=== PATIENT | female | born 1980 | race Caucasian/White ===

== ENCOUNTER 2019-01-10 11:27 | Inpatient (IN) | payer OTHER ==
[2019-01-10 13:36] LABS: ADD MAN DIFF? NO
[2019-01-10 13:41] LABS: WHITE BLOOD COUNT 7.4 10^3/ul (4.8-10.8)
[2019-01-10 13:41] LABS: BASOPHILS % 0.5 % (0.0-2.0); EOSINOPHILS # 0.1 10^3/ul (0.0-0.5); EOSINOPHILS % 1.1 % (0.0-7.0); HEMATOCRIT 40.5 % (37.0-47.0); HEMOGLOBIN 13.5 g/dl (12.0-16.0); LYMPHOCYTES # 2.3 10^3/ul (0.8-2.9); LYMPHOCYTES % 31.2 % (15.0-51.0); MEAN CORPUSCULAR HEMOGLOBIN 29.3 pg (29.0-33.0); MEAN CORPUSCULAR HGB CONC 33.3 g/dl (32.0-37.0); MEAN CORPUSCULAR VOLUME 87.9 fl (82.0-101.0); MEAN PLATELET VOLUME 9.7 fl (7.4-10.4); MONOCYTE # 0.5 10^3/ul (0.3-0.9); MONOCYTES % 7.2 % (0.0-11.0); NEUTROPHIL # 4.4 10^3/ul (1.6-7.5); NEUTROPHILS % 59.7 % (39.0-77.0); PLATELET COUNT 315 10^3/UL (140-415); RED BLOOD COUNT 4.61 10^6/ul (4.20-5.40); RED CELL DISTRIBUTION WIDTH 12.4 % (11.5-14.5)
[2019-01-10] MEDS: SOD CHLORIDE 0.9% 1,000 ML IV ×2 (13:54→21:51)
[2019-01-10] MEDS: KETOROLAC 15 MG INJ IV ×2 (13:54→17:22)
[2019-01-10 13:58] LABS: ADD UMIC YES; UR ASCORBIC ACID NEGATIVE (NEGATIVE); UR BACTERIA FEW /HPF (NONE SEEN); UR BILIRUBIN (Dip) NEGATIVE (NEGATIVE); UR BLOOD (Dip) 1+ mg/dL (NEGATIVE); UR CLARITY CLOUDY (CLEAR); UR COLOR YELLOW (YELLOW); UR GLUCOSE (Dip) NEGATIVE (NEGATIVE); UR KETONES (Dip) NEGATIVE (NEGATIVE); UR LEUKOCYTE ESTERASE (Dip) 1+ Leu/ul (NEGATIVE); UR MUCUS FEW /HPF (NONE SEEN); UR NITRITE (Dip) NEGATIVE (NEGATIVE); UR RBC 17 /HPF (0-5); UR TOTAL PROTEIN (Dip) 1+ mg/dl (NEGATIVE); UR UROBILINOGEN (Dip) NEGATIVE (NEGATIVE); UR WBC 11 /HPF (0-5)
[2019-01-10 14:15] LABS: ALANINE AMINOTRANSFERASE 19 IU/L (13-69); ALBUMIN 4.5 g/dl (3.3-4.9); ALBUMIN/GLOBULIN RATIO 1.18; ALKALINE PHOSPHATASE 73 IU/L (42-121); ANION GAP 6 (5-13); ASPARTATE AMINO TRANSFERASE 18 IU/L (15-46); BILIRUBIN,INDIRECT 0.3 mg/dl (0-1.1); BILIRUBIN,TOTAL 0.3 mg/dl (0.2-1.3); BLOOD UREA NITROGEN 13 mg/dl (7-20); CALCIUM 9.4 mg/dl (8.4-10.2); CARBON DIOXIDE 28 mmol/L (21-31); CHLORIDE 104 mmol/L (97-110); CREATININE 0.72 mg/dl (0.44-1.00); Estimated GFR > 60 mL/min (>60); GLUCOSE 91 mg/dl (70-220); LIPASE 78 U/L (23-300); POTASSIUM 3.8 mmol/L (3.5-5.1); SODIUM 138 mmol/L (135-144); TOTAL PROTEIN 8.3 g/dl (6.1-8.1)
[2019-01-10] MEDS: DOXYCYCLINE 100 MG TAB PO (14:28)
[2019-01-10] MEDS ORDERED: VANCOMYCIN IV PER PHARMACY XX (17:30)
[2019-01-10] MEDS ORDERED: ONDANSETRON 4 MG INJ IV (17:30)
[2019-01-10] MEDS ORDERED: NACL 0.9% 3 ML SYG IV (17:30)
[2019-01-10] MEDS ORDERED: ACETAMINOPHEN 325 MG TAB PO (17:30)
[2019-01-10] MEDS ORDERED: VANCOMYCIN 1.5 GM/NS 250 ML 250 ML IVPB (18:30)
[2019-01-10 20:47] LABS: INR 0.92; PARTIAL THROMBOPLASTIN TIME 31.4 Sec (23.0-35.0); PROTIME 12.5 Sec (11.9-14.9)
[2019-01-10] MEDS: VANCOMYCIN 1.5 GM/NS 250 ML 250 ML IVPB (21:52)
[2019-01-10] MEDS: CEFEPIME 1GM/50 ML (PMX) 50 ML IVPB (21:52)
[2019-01-11] MEDS: SOD CHLORIDE 0.9% 1,000 ML IV ×2 (03:05→18:01)
[2019-01-11] MEDS: KETOROLAC 15 MG INJ IV ×2 (03:36→21:07)
[2019-01-11 05:33] LABS: ADD MAN DIFF? NO
[2019-01-11] MEDS: PANTOPRAZOLE (EC) 40 MG TAB PO (05:40)
[2019-01-11 05:43] LABS: WHITE BLOOD COUNT 7.6 10^3/ul (4.8-10.8)
[2019-01-11 05:43] LABS: BASOPHILS % 0.5 % (0.0-2.0); EOSINOPHILS # 0.1 10^3/ul (0.0-0.5); EOSINOPHILS % 1.7 % (0.0-7.0); HEMATOCRIT 37.9 % (37.0-47.0); HEMOGLOBIN 12.1 g/dl (12.0-16.0); LYMPHOCYTES # 2.2 10^3/ul (0.8-2.9); LYMPHOCYTES % 29.3 % (15.0-51.0); MEAN CORPUSCULAR HEMOGLOBIN 28.7 pg (29.0-33.0); MEAN CORPUSCULAR HGB CONC 31.9 g/dl (32.0-37.0); MEAN CORPUSCULAR VOLUME 89.8 fl (82.0-101.0); MEAN PLATELET VOLUME 10.3 fl (7.4-10.4); MONOCYTE # 0.6 10^3/ul (0.3-0.9); MONOCYTES % 8.2 % (0.0-11.0); NEUTROPHIL # 4.5 10^3/ul (1.6-7.5); NEUTROPHILS % 59.9 % (39.0-77.0); PLATELET COUNT 263 10^3/UL (140-415); RED BLOOD COUNT 4.22 10^6/ul (4.20-5.40); RED CELL DISTRIBUTION WIDTH 12.7 % (11.5-14.5)
[2019-01-11 06:19] LABS: ALANINE AMINOTRANSFERASE 26 IU/L (13-69); ALBUMIN 3.7 g/dl (3.3-4.9); ALBUMIN/GLOBULIN RATIO 1.15; ALKALINE PHOSPHATASE 75 IU/L (42-121); ANION GAP 6 (5-13); ASPARTATE AMINO TRANSFERASE 18 IU/L (15-46); BILIRUBIN,INDIRECT 0.3 mg/dl (0-1.1); BILIRUBIN,TOTAL 0.3 mg/dl (0.2-1.3); BLOOD UREA NITROGEN 15 mg/dl (7-20); CALCIUM 8.7 mg/dl (8.4-10.2); CARBON DIOXIDE 26 mmol/L (21-31); CHLORIDE 107 mmol/L (97-110); CREATININE 0.74 mg/dl (0.44-1.00); Estimated GFR > 60 mL/min (>60); GLUCOSE 90 mg/dl (70-220); MAGNESIUM 1.9 mg/dl (1.7-2.5); PHOSPHORUS 3.6 mg/dl (2.5-4.9); POTASSIUM 3.4 mmol/L (3.5-5.1); SODIUM 139 mmol/L (135-144); TOTAL PROTEIN 6.9 g/dl (6.1-8.1)
[2019-01-11] MEDS: CEFEPIME 1GM/50 ML (PMX) 50 ML IVPB ×2 (08:39→21:06)
[2019-01-11] MEDS ORDERED: METOCLOPRAMIDE 10 MG INJ IV (09:00)
[2019-01-11] MEDS ORDERED: FENTAnyl 50 MCG/ML VIAL IV (09:00)
[2019-01-11] MEDS ORDERED: HYDROmorphONE 1 MG/5 ML IV SYRINGE IV ×2 (09:00)
[2019-01-11] MEDS ORDERED: DIPHENHYDRAMINE 50 MG INJ IV (09:00)
[2019-01-11] MEDS ORDERED: ALBUTEROL 0.083% (NEB) 2.5 MG/3 ML AMP HHN (09:00)
[2019-01-11] MEDS ORDERED: FENTAnyl 50 MCG/ML VIAL (09:07)
[2019-01-11] MEDS ORDERED: GLYCOPYRROLATE 0.4 MG INJ (09:07)
[2019-01-11] MEDS ORDERED: ROCURONIUM 50 MG INJ (09:31)
[2019-01-11] MEDS ORDERED: LIDOCAINE 100 MG SYRINGE (09:31)
[2019-01-11] MEDS ORDERED: PROPOFOL 20 ML (09:31)
[2019-01-11] MEDS ORDERED: SUCCINYLCHOLINE CHLORIDE 100 MG/5 ML SYG IV (09:31)
[2019-01-11] MEDS ORDERED: SUGAMMADEX SODIUM 200 MG/2 ML VIAL IV (09:31)
[2019-01-11] MEDS: ONDANSETRON 4 MG INJ IV (11:31)
[2019-01-11] MEDS: MEPERIDINE 25 MG INJ IV (11:31)
[2019-01-11] MEDS: VANCOMYCIN 1.25 GM/NS 250 ML 250 ML IVPB (11:59)
[2019-01-11] MEDS: HYDROmorphONE 1 MG/5 ML IV SYRINGE IV (12:08)
[2019-01-11] MEDS: FENTAnyl 50 MCG/ML VIAL IV (12:23)
[2019-01-11] MEDS: HYDROCODONE/APAP (5/325) TAB PO ×2 (14:20→19:16)
[2019-01-11] MEDS: POTASSIUM CHLORIDE 20 MEQ POWDER FOR ORAL SOLN NGT (14:20)
[2019-01-12] MEDS: HYDROCODONE/APAP (5/325) TAB PO ×2 (01:28→11:45)
[2019-01-12] MEDS: SOD CHLORIDE 0.9% 1,000 ML IV ×2 (01:28→09:05)
[2019-01-12 04:56] LABS: ADD MAN DIFF? NO
[2019-01-12 05:03] LABS: WHITE BLOOD COUNT 7.8 10^3/ul (4.8-10.8)
[2019-01-12 05:03] LABS: BASOPHILS % 0.4 % (0.0-2.0); EOSINOPHILS # 0.1 10^3/ul (0.0-0.5); EOSINOPHILS % 1.3 % (0.0-7.0); HEMATOCRIT 36.9 % (37.0-47.0); HEMOGLOBIN 11.7 g/dl (12.0-16.0); LYMPHOCYTES # 2.2 10^3/ul (0.8-2.9); LYMPHOCYTES % 27.6 % (15.0-51.0); MEAN CORPUSCULAR HEMOGLOBIN 28.6 pg (29.0-33.0); MEAN CORPUSCULAR HGB CONC 31.7 g/dl (32.0-37.0); MEAN CORPUSCULAR VOLUME 90.2 fl (82.0-101.0); MEAN PLATELET VOLUME 10.1 fl (7.4-10.4); MONOCYTE # 0.6 10^3/ul (0.3-0.9); NEUTROPHIL # 4.9 10^3/ul (1.6-7.5); NEUTROPHILS % 62.4 % (39.0-77.0); PLATELET COUNT 235 10^3/UL (140-415); RED BLOOD COUNT 4.09 10^6/ul (4.20-5.40); RED CELL DISTRIBUTION WIDTH 12.9 % (11.5-14.5)
[2019-01-12 05:23] LABS: ANION GAP 6 (5-13); BLOOD UREA NITROGEN 9 mg/dl (7-20); CALCIUM 8.6 mg/dl (8.4-10.2); CARBON DIOXIDE 25 mmol/L (21-31); CHLORIDE 108 mmol/L (97-110); CREATININE 0.74 mg/dl (0.44-1.00); Estimated GFR > 60 mL/min (>60); GLUCOSE 94 mg/dl (70-220); SODIUM 139 mmol/L (135-144)
[2019-01-12] MEDS: PANTOPRAZOLE (EC) 40 MG TAB PO (06:56)
[2019-01-12] MEDS: KETOROLAC 15 MG INJ IV ×2 (07:46→14:39)
[2019-01-12] MEDS: CEFEPIME 1GM/50 ML (PMX) 50 ML IVPB (08:47)
[2019-01-12] MEDS: LEVOFLOXACIN 750 MG TABLET PO (11:44)
[2019-01-12 14:51] LABS: TROPONIN-I < 0.012 ng/ml (0.000-0.120)
== END 2019-01-12 17:40 | disposition home or self-care (01) | DRG 661 ==
LOC: E/R 11:27 → MS1 15:19
PROC: 0TC48ZZ Extirpation of Matter from Left Kidney Pelvis, Via Natural or Artificial Opening Endoscopic (ICD-10-PCS; principal; 2019-01-11 09:00)
PROC: 0T778DZ Dilation of Left Ureter with Intraluminal Device, Via Natural or Artificial Opening Endoscopic (ICD-10-PCS; 2019-01-11 09:00)
PROC: 0T9B8ZX Drainage of Bladder, Via Natural or Artificial Opening Endoscopic, Diagnostic (ICD-10-PCS; 2019-01-11 09:00)
PROC: 0TP580Z Removal of Drainage Device from Kidney, Via Natural or Artificial Opening Endoscopic (ICD-10-PCS; 2019-01-11 09:00)
DX: N13.6 Pyonephrosis (principal); E66.9 Obesity, unspecified; E87.6 Hypokalemia; D64.9 Anemia, unspecified; B96.4 Proteus (mirabilis) (morganii) as the cause of diseases classified elsewhere; Z68.31 Body mass index [BMI] 31.0-31.9, adult; Z87.440 Personal history of urinary (tract) infections; Z87.442 Personal history of urinary calculi; Z93.6 Other artificial openings of urinary tract status
CPT/HCPCS: 36415; 71045; 74018; 74019; 74176; 74430; 80048; 80053; 81001; 81025; 83605; 83690; 83735; 84100; 84484; 85025; 85610; 85730; 87040-91; 87086; 88300; 93005; 96361; 96374; 99285-25